=== PATIENT | female | born 1990 | race Caucasian/White ===

== ENCOUNTER 2017-10-13 17:27 | Emergency (ER) | payer OTHER ==
[2017-10-13 17:37] VITALS: BP 100/56; PULSE 90; TEMP 99.5; BMI 26.5
--- NOTE | 2017-10-13 17:37 | PDOC ---
Rapid Medical Evaluation Time Seen by Provider: 10/13/17 17:34 Medical Evaluation: Allergies Allergy/AdvReac Type Severity Reaction Status Date / Time No Known Allergies Allergy Verified 06/25/13 03:08 I have performed a brief in-person evaluation of this patient. The patient presents with a chief complaint of: headache, sore throat, low back pain today. Patient is 13 weeks Pertinent physical exam findings: none I have ordered the following: UA/culture The patient will proceed to the ED for further evaluation. Discharge Disposition - Diagnosis Body aches - Referrals - Patient Instructions - Post Discharge Activity
[2017-10-13 18:40] LABS: URINE APPEARANCE CLOUDY; URINE BILIRUBIN NEGATIVE (<2.0 mg/dL); URINE COLOR LTYELLOW; URINE GLUCOSE (UA) NEGATIVE (NEGATIVE); URINE KETONE NEGATIVE (NEGATIVE); URINE NITRITE NEGATIVE (NEGATIVE); URINE PROTEIN NEGATIVE (NEGATIVE); URINE UROBILINOGEN NEGATIVE mg/dL (0.2-1.0)
[2017-10-13 18:52] LABS: URINE LEUK ESTERASE 3+ (NEGATIVE)
[2017-10-13 18:55] LABS: EPI CELLS FEW /HPF (FEW); URINE BACTERIA RARE /hpf (NONE SEEN); URINE HYALINE CAST 1 /lpf; URINE MUCUS RARE
--- NOTE | 2017-10-13 19:13 | PDOC ---
History of Present Illness - General Chief Complaint: Cold Symptoms Stated Complaint: PAIN/FEVER Time Seen by Provider: 10/13/17 17:34 - History of Present Illness Initial Comments: 27-year-old 13 week female presents for evaluation of urinary frequency with associated fever at home up to 100 degrees. She has associated headache and lower back pain. Mild sore throat symptoms. She has no comorbidities 10/13/17 19:09 Past History - Past Medical History Allergies/Adverse Reactions: Allergies Allergy/AdvReac Type Severity Reaction Status Date / Time No Known Allergies Allergy Verified 10/13/17 17:34 Home Medications: Ambulatory Orders Nitrofurantoin Monohyd/M-Cryst [Macrobid -] 100 mg PO BID #14 capsule 10/13/17 Asthma: Yes Cancer: No Cardiac Disorders: No COPD: No DVT: No Diabetes: No HTN: No Seizures: No Thyroid Disease: No - Immunization History Immunization Up to Date: Yes - Suicide/Smoking/Psychosocial Hx Smoking History: Never smoked Have you smoked in the past 12 months: No Information on smoking cessation initiated: No Hx Alcohol Use: No Drug/Substance Use Hx: No Substance Use Type: None Hx Substance Use Treatment: No Review of Systems - Review of Systems Constitutional: Yes: Fever HEENTM: Yes: Throat Pain : Yes: Frequency. No: Burning, Dysuria, Discharge Musculoskeletal: Yes: Back Pain All Other Systems: Reviewed and Negative *Physical Exam - Vital Signs Last Vital Signs Temp Pulse Resp BP Pulse Ox 99.5 F 90 18 100/56 100 10/13/17 17:35 10/13/17 17:35 10/13/17 17:35 10/13/17 17:35 10/13/17 17:35 - Physical Exam Comments: GENERAL: The patient is awake, alert, and fully oriented, in no acute distress. HEAD: Normal with no signs of trauma. NECK: Normal range of motion, supple without lymphadenopathy, JVD, or masses. LUNGS: Breath sounds equal, clear to auscultation bilaterally. No wheezes, and no crackles. HEART: Regular rate and rhythm, normal S1 and S2 without murmur, rub or gallop. ABDOMEN: Soft, nontender, normoactive bowel sounds. No guarding, no rebound. No masses. EXTREMITIES: Normal range of motion, no edema. No clubbing or cyanosis. No cords, erythema, or tenderness. NEUROLOGICAL: Cranial nerves II through XII grossly intact. Normal speech, normal gait. PSYCH: Normal mood, normal affect. SKIN: Warm, Dry, normal turgor, no rashes or lesions noted. 10/13/17 19:11 ED Treatment Course - ADDITIONAL ORDERS Additional order review: Laboratory Results 10/13/17 18:00 Urine Color Ltyellow Urine Appearance Cloudy Urine pH 8.0 D Ur Specific [place] 1.009 Urine Protein Negative Urine Glucose (UA) Negative Urine Ketones Negative Urine Blood Negative Urine Nitrite Negative Urine Bilirubin Negative Urine Urobilinogen Negative Ur Leukocyte Esterase 3+ H D Urine WBC (Auto) 5 Urine RBC (Auto) 1 Ur Epithelial Cells Few Urine Bacteria Rare Hyaline Casts 1 Urine Mucus Rare Medical Decision Making - Medical Decision Making I've expressed to her the importance of keeping her fever down with Tylenol treat her UTI with Macrobid and have her follow-up with her MEDICAL 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 It's extremely important few to keep her fever down and take Tylenol if you feel like to getting the fever. This could be harmful to her if you develop a fever that's untreated. Take all antibiotics as prescribed - Post Discharge Activity
== END 2017-10-13 19:15 | disposition home or self-care (01) ==
LOC: JERFT 17:27
DX: O26.891 Other specified pregnancy related conditions, first trimester (principal); O23.31 Infections of other parts of urinary tract in pregnancy, first trimester; Z3A.13 13 weeks gestation of pregnancy
CPT/HCPCS: 81003; 81015; 87086; 99281-25

== ENCOUNTER 2018-04-17 21:33 | Inpatient (IN) | payer OTHER ==
[2018-04-17] MEDS ORDERED: DEXTROSE 5%-LACTATED RINGERS 1,000 ML IV SCH ×2 (22:45→23:00)
[2018-04-17] MEDS ORDERED: OXYTOCIN 20 UNITS in 0.9% NS 20 UNIT/1,000 ML INFUS.BAG IV ONE (22:52)
[2018-04-17 22:55] LABS: BASO % 0.9 % (0-2.0); EOS % 1.9 % (0-4.5); HEMATOCRIT 36.7 % (32.4-45.2); HEMOGLOBIN 12.1 GM/dL (10.7-15.3); MCHC 33.1 g/dl (32.0-36.0); MEAN CELL VOLUME 87.4 fl (80-96); MEAN PLT VOLUME 9.1 fl (7.5-11.1); MONO % 9.5 % (3.8-10.2); NEUT % 60.7 % (42.8-82.8); PLATELET COUNT 260 K/MM3 (134-434); RDW 13.1 % (11.6-15.6); WHITE BLOOD COUNT 9.3 K/mm3 (4.0-10.0)
[2018-04-17] MEDS: OXYTOCIN 20 UNITS in 0.9% NS 20 UNIT/1,000 ML INFUS.BAG IV SCH (22:58)
[2018-04-17] MEDS ORDERED: BENZOCAINE 20% 57 GM BOTTLE TP PRN (22:59)
[2018-04-17] MEDS ORDERED: WITCH HAZEL 50% (TUCKS) 40 PAD/JAR PAD TP PRN (22:59)
[2018-04-17] MEDS ORDERED: BENZOCAINE 28 GM HEMORRHOIDAL OINTMENT TP PRN (22:59)
[2018-04-17] MEDS ORDERED: METHYLERGONOVINE MALEATE 0.2 MG/1 ML AMP IM PRN (22:59)
--- NOTE | 2018-04-17 23:03 | HP ---
Past Medical History - Admission Chief Complaint: Uterine contractions History of Present Illness: 27yo @ 39.6wks by MAGGY ramos 04/18/18 here with uterine contractions. No VB. No LOF. +FM Preg uncomplicated History Source: Patient Limitations to Obtaining History: No Limitations - Past Medical History Pulmonary: Yes: Asthma ...: 4 ...Para: 2 ...Term: 2 ...: 0 ...Spon : 1 ... Weeks Gestation by Dates: 39.6 ...EDC by Dates: 04/04/18 ...EDC by Sono: 04/18/18 Psych: Yes: Anxiety - Past Surgical History Past Surgical History: Yes: None Hx Myomectomy: No Hx Transabdominal Cerclage: No - Smoking History Smoking history: Never smoked Have you smoked in the past 12 months: No - Alcohol/Substance Use Hx Alcohol Use: No History of Substance Use: reports: None - Social History Usual Living Arrangement: Yes: With Spouse History of Recent Travel: No Home Medications - Allergies Allergies/Adverse Reactions: Allergies Allergy/AdvReac Type Severity Reaction Status Date / Time No Known Allergies Allergy Verified 10/13/17 17:34 - Home Medications Home Medications: Ambulatory Orders Vit 108/Iron/Folic AC [ One Tablet] 1 tab PO DAILY 04/17/18 Physical Exam - Maternity - Abdominal Exam/OB Number of Fetuses: Single Presentation: Vertex Contractions: Yes Regularity: Regular Intensity: Moderate Monitor Mode: External Category: II Accelerations: Uniform Decelerations: Variable - Vaginal Exam/OB Dilatation (cm): 6-7 Effacement (%): 100 Amniotic Membrane Status: Intact Presentation: Vertex/Position Station: -1 - Physical Exam Edema: No - Labs Lab Results: CBC, BMP 04/17/18 22:30 Assessment/Plan 27yo @ 39.6wks here with uterine contractions Admit to L&D NPO, IVFs Cat II tracing 2/2 intermittent variable decels, likely secondary to active/ imminent labor. Repositioned, oxygen GBS neg Anticipate Patricia Wall MD
[2018-04-17 23:08] LABS: INR 0.93 (0.83-1.09)
--- NOTE | 2018-04-17 23:08 | PN ---
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 39week gestation. No anesthesia. Spontaneous delivery of anterior shoulder. Cord clamped and cut. Infant placed on maternal abdomen. Weight pending. Apgars 9/9. Spontaneous delivery of intact placenta with 3VC. Fundus firm. Perineum inspected, no lacerations noted. EBL 200ml. Mother and baby doing well. Patricia Wall MD
[2018-04-17 23:11] LABS: ACTIVATED PTT 27.5 SECONDS (25.2-36.5)
[2018-04-17 23:23] LABS: ANION GAP 10 MMOL/L (8-16); BLOOD UREA NITROGEN 7 mg/dL (7-18); CHLORIDE 103 mmol/L (98-107); CO2 23 mmol/L (21-32); CREATININE 0.6 mg/dL (0.55-1.3); GLUCOSE,RANDOM 75 mg/dL (74-106); POTASSIUM 4.3 mmol/L (3.5-5.1); SODIUM 137 mmol/L (136-145)
[2018-04-18 00:14] VITALS: BMI 30.5
[2018-04-18] MEDS: ACETAMINOPHEN 325 MG TABLET (FP) PO PRN ×2 (00:15→08:32)
[2018-04-18] MEDS: IBUPROFEN 600 MG TABLET (FP) PO PRN ×2 (00:15→08:32)
[2018-04-18] MEDS ORDERED: IBUPROFEN 600 MG TABLET (FP) PO ONE (00:16)
[2018-04-18] MEDS ORDERED: ACETAMINOPHEN 325 MG TABLET (FP) ONE (00:16)
[2018-04-18] MEDS: OXYTOCIN 20 UNITS in 0.9% NS 20 UNIT/1,000 ML INFUS.BAG IV SCH (03:54)
[2018-04-18 07:26] LABS: BASO % 0.7 % (0-2.0); EOS % 1.2 % (0-4.5); HEMATOCRIT 33.4 % (32.4-45.2); HEMOGLOBIN 10.9 GM/dL (10.7-15.3); LYMPH % 18.3 % (8-40); MCH 28.9 pg (25.7-33.7); MCHC 32.6 g/dl (32.0-36.0); MEAN CELL VOLUME 88.8 fl (80-96); MEAN PLT VOLUME 8.9 fl (7.5-11.1); MONO % 11.4 % (3.8-10.2); NEUT % 68.4 % (42.8-82.8); PLATELET COUNT 225 K/MM3 (134-434); RBC 3.76 M/mm3 (3.60-5.2); RDW 13.4 % (11.6-15.6); WHITE BLOOD COUNT 13.7 K/mm3 (4.0-10.0)
--- NOTE | 2018-04-18 07:31 | PN ---
Post Progress Note Type of Delivery: Vital Signs: Vital Signs Temperature 98.3 F 04/18/18 06:00 Pulse Rate 56 L 04/18/18 06:00 Respiratory Rate 20 04/18/18 06:00 Blood Pressure 101/52 L 04/18/18 06:00 O2 Sat by Pulse Oximetry (%) 98 04/18/18 00:15 Uterus: Yes: Fundus Firm Abdomen/GI: Yes: Abdomen soft Lochia: Yes: Rubra Lochia, amount: Small Extremities: Yes: Calves non-tender Perineum: Yes: Intact Activity: Ambulating - Labs Labs: CBC WBC 9.3 K/mm3 (4.0-10.0) 04/17/18 22:30 RBC 4.20 M/mm3 (3.60-5.2) 04/17/18 22:30 Hgb 12.1 GM/dL (10.7-15.3) 04/17/18 22:30 Hct 36.7 % (32.4-45.2) D 04/17/18 22:30 MCV 87.4 fl (80-96) 04/17/18 22:30 MCH 29.0 pg (25.7-33.7) D 04/17/18 22:30 MCHC 33.1 g/dl (32.0-36.0) 04/17/18 22:30 RDW 13.1 % (11.6-15.6) 04/17/18 22:30 Plt Count 260 K/MM3 (134-434) D 04/17/18 22:30 MPV 9.1 fl (7.5-11.1) 04/17/18 22:30 Absolute Neuts (auto) 5.6 K/mm3 (1.5-8.0) 04/17/18 22:30 Neutrophils % 60.7 % (42.8-82.8) 04/17/18 22:30 Lymphocytes % 27.0 % (8-40) D 04/17/18 22:30 Monocytes % 9.5 % (3.8-10.2) 04/17/18 22:30 Eosinophils % 1.9 % (0-4.5) 04/17/18 22:30 Basophils % 0.9 % (0-2.0) 04/17/18 22:30 Nucleated RBC % 0 % (0-0) 04/17/18 22:30 Assessment/Plan 27yo s/p , PPD#1 Rh+/boy Routine PP care OOB, ambulate Labs pending Anticipate d/c to home by PPD#2 Patricia Wall MD
[2018-04-18] MEDS: FERROUS SO4 325 MG TABLET (FP) PO SCH (08:32)
[2018-04-18] MEDS: PRENATAL VITAMINS W/ FOLIC ACID TABLET (FP) PO SCH (09:36)
[2018-04-18] MEDS ORDERED: SENNOSIDES/DOCUSATE COMBO (SENNA PLUS) TABLET (UD) PO PRN (22:00)
[2018-04-19] MEDS: FERROUS SO4 325 MG TABLET (FP) PO SCH (07:08)
[2018-04-19] MEDS: IBUPROFEN 600 MG TABLET (FP) PO PRN (07:08)
[2018-04-19] MEDS: ACETAMINOPHEN 325 MG TABLET (FP) PO PRN (07:09)
--- NOTE | 2018-04-19 09:55 | DS ---
Physical Exam-GALLEY BOY Vital Signs: Vital Signs Temperature 98.4 F 04/18/18 21:54 Pulse Rate 62 04/18/18 21:54 Respiratory Rate 18 04/18/18 21:54 Blood Pressure 108/57 L 04/18/18 21:54 O2 Sat by Pulse Oximetry (%) 98 04/18/18 00:15 Constitutional: Yes: Well Nourished Eyes: Yes: Conjunctiva Clear HENT: Yes: Atraumatic Neck: Yes: Supple Cardiovascular: Yes: Regular Rate and Rhythm Respiratory: Yes: Regular Gastrointestinal: Yes: Normal Bowel Sounds External Genitalia: Yes: Normal Vaginal Exam: Yes: Normal Cervix: Yes: Normal Uterus: Yes: Firm ....Post : Yes: Uterus firm Extremities: Yes: WNL Neurological: Yes: Alert, Oriented ...Motor Strength: WNL Psychiatric: Yes: Alert, Oriented Labs: CBC, BMP 04/18/18 06:30 04/17/18 22:30 Delivery - Delivery Vaginal Delivery: Spontaneous Type of Anesthesia: None Episiotomy/Laceration: None EBL (cc): 200 Delivery, Single - Stages of Labor Date 1st Stage Initiatied: 04/17/18 Time 1st Stage Initiated: 13:00 Date 2nd Stage Initiated: 04/17/18 Time 2nd Stage Initiated: 22:40 Date of Delivery: 04/17/18 Time of Delivery: 22:55 Time Placenta Delivered: 22:58 Placenta: Yes: Spontaneous - 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 Baby Present: No Infant Gender: Male Weight: 6 lb Position: Right, OA Total Hours ROM (Hrs/Mins): 0Hrs/18Mins - 1 Minute Total Score: 9 5 Minutes Total Score: 9 - Feeding Plan Initial Plan: Exclusive throughout hospitalization Discharge Summary Reason For Visit: LABOR ADMIT Current Active Problems Status post normal vaginal delivery (Acute) Procedures: Principal: Normal spontaneous vaginal delivery Hospital Course: Routine care Condition: Good - Instructions Diet, Activity, Other Instructions: Regular diet No douching, no sexual intercourse x 6 weeks F/U in clinic in 6 weeks Referrals: Patricia Wall MD [Staff Physician] - Disposition: HOME - Home Medications Comprehensive Discharge Medication List: Ambulatory Orders Vit 108/Iron/Folic AC [ One Tablet] 1 tab PO DAILY 04/17/18
[2018-04-19] MEDS: PRENATAL VITAMINS W/ FOLIC ACID TABLET (FP) PO SCH (10:00)
[2018-04-19 11:35] VITALS: BP 102/58; PULSE 55; TEMP 97.6
== END 2018-04-19 13:50 | disposition home or self-care (01) | DRG 560 ==
LOC: JDEL 21:33 → JLDR 21:35 → J3W 04-18 01:23
PROVIDERS: ADMIT Obstetrics & Gynecology; ATTEND Obstetrics & Gynecology
PROC: 10E0XZZ Delivery of Products of Conception, External Approach (ICD-10-PCS; principal; 2018-04-17)
DX: O80 Encounter for full-term uncomplicated delivery (principal); Z3A.39 39 weeks gestation of pregnancy; Z37.0 Single live birth
CPT/HCPCS: 36415; 59409; 80048; 85025; 85610; 85730; 86593; 86850; 86900; 86901

== ENCOUNTER 2018-07-15 11:23 | Emergency (ER) | payer OTHER ==
[2018-07-15 11:40] VITALS: BP 102/64; PULSE 82; TEMP 98.5; BMI 28.7
[2018-07-15] MEDS ORDERED: ALBUTEROL SO4 2.5/IPRATROPIUM 0.5 INH SOL 3 ML VIAL.NEB. NEB ONE ×2 (12:02→12:05)
--- NOTE | 2018-07-15 12:12 | PDOC ---
History of Present Illness - General Chief Complaint: Asthma Stated Complaint: DIFFICULTY BREATHING Time Seen by Provider: 07/15/18 11:39 History Source: Patient Exam Limitations: No Limitations - History of Present Illness Initial Comments: 07/15/18 12:14 Patient here with complaints of pleuritic chest pain, chest tightness and uncertainty as to whether asthma exacerbation versus anxiety. Denies fevers, denies any ear or throat pain, however states has a moist cough and does suffer from seasonal/environmental ALLERGIES with some posterior sinus drainage. Has not used her asthma medications for the past few days for relief of any of the symptoms. Patient states suffers from anxiety and has been under some worsened stress recently. Does not take medication for relief, states usually does therapeutic modalities to help reduce her stress and does not have any other interventions. Denies homicidal or suicidal ideation 07/15/18 12:42 Timing/Duration: reports: just prior to arrival Severity: reports: mild Associated Symptoms: reports: chest pain/soreness, cough, fever/chills, headache , nasal congestion Past History - Travel Traveled outside of the country in the last 30 days: No Close contact w/someone who was outside of country & ill: No - Past Medical History Allergies/Adverse Reactions: Allergies Allergy/AdvReac Type Severity Reaction Status Date / Time No Known Allergies Allergy Verified 07/15/18 11:38 Home Medications: Ambulatory Orders Albuterol Sulfate Inhaler - [Ventolin HFA Inhaler -] 1 - 2 inh PO Q4H #1 inhaler 07/15/18 Albuterol Sulfate Inhaler - [Ventolin Hfa Inhaler -] 1 - 2 inh PO QID 07/15/18 Asthma: Yes (No meds) Cancer: No Cardiac Disorders: No COPD: No DVT: No Diabetes: No HTN: No Seizures: No Thyroid Disease: No - Immunization History Immunization Up to Date: Yes - Suicide/Smoking/Psychosocial Hx Smoking History: Never smoked Have you smoked in the past 12 months: No Hx Alcohol Use: No Drug/Substance Use Hx: No Substance Use Type: None Hx Substance Use Treatment: No Review of Systems - Review of Systems Able to Perform ROS?: Yes Is the patient limited Spanish proficient: Yes Constitutional: Yes: Symptoms Reported, See HPI, Malaise. No: Fever HEENTM: Yes: See HPI, Nose Congestion. No: Symptoms Reported Respiratory: Yes: Symptoms reported, See HPI, Cough. No: Wheezing Musculoskeletal: Yes: Symptoms Reported Integumentary: No: Symptoms Reported Neurological: Yes: Symptoms reported, See HPI, Headache All Other Systems: Reviewed and Negative *Physical Exam - Vital Signs Last Vital Signs Temp Pulse Resp BP Pulse Ox 98.5 F 82 20 102/64 99 07/15/18 11:38 07/15/18 11:38 07/15/18 11:38 07/15/18 11:38 07/15/18 11:38 - Physical Exam General Appearance: Yes: Nourished, Appropriately Dressed, Mild Distress HEENT: positive: PATRICIA, Normal ENT Inspection, Nasal Congestion, Rhinorrhea, Sinus Tenderness. negative: TMs Normal (congested but landmarks visualized ), Pharynx Normal (posterior sinus drainage noted) Neck: positive: Supple. negative: Tender Respiratory/Chest: positive: Chest Tender (mild anterior chest tenderness and worse with deep inspirtation ), Lungs Clear, Decreased Breath Sounds (some tightness wiht deep inspirtation ) Cardiovascular: positive: Regular Rate Gastrointestinal/Abdominal: positive: Soft. negative: Tender Extremity: positive: Normal Capillary Refill Integumentary: positive: Normal Color, Dry, Warm, Pale Neurologic: positive: detonator assembler II-XII NML intact, Fully Oriented, Alert, Normal Mood/ Affect, Normal Response Moderate Sedation - Procedure Monitoring Vital Signs: Procedure Monitoring Vital Signs Temperature 98.5 F 07/15/18 11:38 Pulse Rate 82 07/15/18 11:38 Respiratory Rate 20 07/15/18 11:38 Blood Pressure 102/64 07/15/18 11:38 O2 Sat by Pulse Oximetry (%) 99 07/15/18 11:38 Progress Note - Progress Note Progress Note: Patient much improved after DuoNeb feels much better and pleuritic chest pain is resolved. We will encourage asthma treatment and follow-up with insurance to attempt to find counseling for her anxiety issues *DC/Admit/Observation/Transfer Diagnosis at time of Disposition: Asthma attack Qualifiers: Asthma severity: mild Asthma persistence: intermittent Qualified Code(s): J45.21 - Mild intermittent asthma with (acute) exacerbation - Discharge Dispostion Disposition: HOME Condition at time of disposition: Stable Decision to Admit order: No - Referrals - Patient Instructions Printed Discharge Instructions: DI for Asthma -- Adult Additional Instructions: Rest, drink lots of fluids: Teas, water, soups, Pedialyte Saltwater gargles Steamy showers/seem to face break up mucus Avoid contact with others until fevers and cough resolved Lots of handwashing and good hygiene Continue [id number] medications for symptomatic relief Tylenol or Motrin for fever and pain Continue albuterol nebulizers every 4-6 hours for the next 2 days then as needed for continued cough Followup with private physician in one to 2 days Return to emergency department / pediatric hospital for worsened symptoms, fevers, dehydration - Post Discharge Activity Forms/Work/School Notes: Back to Work
== END 2018-07-15 12:41 | disposition home or self-care (01) ==
LOC: JERFT 11:23
PROC: 3E0F7GC Introduction of Other Therapeutic Substance into Respiratory Tract, Via Natural or Artificial Opening (ICD-10-PCS; principal; 2018-07-15)
DX: J45.21 Mild intermittent asthma with (acute) exacerbation (principal)
CPT/HCPCS: 94640; 99281-25

== ENCOUNTER 2019-01-15 14:42 | Emergency (ER) | payer OTHER ==
[2019-01-15 14:45] VITALS: BMI 30.2
[2019-01-15] MEDS ORDERED: SODIUM CHLORIDE 0.9% 500 ML INFUS.BAG IV ONE (17:18)
[2019-01-15] MEDS ORDERED: KETOROLAC TROMETHAMINE 15 MG/ML VIAL IVPUSH ONE (17:18)
--- NOTE | 2019-01-15 17:18 | PDOC ---
History of Present Illness - General Chief Complaint: Migraine Headache Stated Complaint: DIZZY Time Seen by Provider: 01/15/19 17:11 - History of Present Illness Initial Comments: 01/15/19 17:15 CHIEF COMPLAINT: headache HISTORY OF PRESENT ILLNESS: 28 yo F presents to ED with "migraine" x 1 week. Patient reports symptoms began one week ago as a frontal headache and now the pain is radiating to the back of her head. Pain is described as a constant, throbbing pain and is 8/10. Patient reports nausea and photophobia. LMP began two days ago. No recent travel or sick contacts. PAST MEDICAL HISTORY: Denies past medical history FAMILY HISTORY: Denies SOCIAL HISTORY: Denies tobacco, alcohol, illicit drug use. SURGICAL HISTORY: Denies ALLERGIES: No known drug allergies REVIEW OF SYSTEMS General/Constitutional: Denies fever or chills. Denies weakness, weight change. HEENT: +Photophobia, denies change in vision. Denies ear pain or discharge. Denies sore throat. Cardiovascular: Denies chest pain or shortness of breath. Respiratory: Denies cough, wheezing, or hemoptysis. Gastrointestinal: Denies nausea, vomiting, diarrhea or constipation. Denies rectal bleeding. Genitourinary: Denies dysuria, frequency, or change in urination. Musculoskeletal: Denies joint or muscle swelling or pain. Denies neck or back pain. Skin and breasts: Denies rash or easy bruising. Neurologic: Headache and dizziness. Denies loss of consciousness, or loss of sensation. Psychiatric: Denies depression or anxiety. PHYSICAL EXAM General Appearance: Well-appearing, appropriately dressed. No apparent distress , no intoxication. HEENT: EOMI, PERRLA, normal ENT inspection, normal voice, TMs normal, pharynx normal. No conjunctival pallor. No photophobia, scleral icterus. Neck: Supple. Trachea midline. No tenderness, rigidity, carotid bruit, stridor , lymphadenopathy, or thyromegaly. Respiratory/Chest: Lungs CTAB. No shortness of breath, chest tenderness, respiratory distress, accessory muscle use. No crackles, rales, rhonchi, stridor , wheezing, dullness Cardiovascular: RRR. S1, S2. No JVD, murmur, bradycardia, tachycardia. Vascular Pulses: Dorsalis-Pedis (R): 2+, Dorsalis-Pedis (L): 2+ Gastrointestinal/Abdominal: Normal bowel sounds. Abdomen soft, non-distended. No tenderness or rebound tenderness. No organomegaly, pulsatile mass, guarding , hernia, hepatomegaly, splenomegaly. Lymphatic: No adenopathy, tenderness. Musculoskeletal/Extremities: Normal inspection. FROM of all extremities, normal capillary refill. Pelvis Stable. No CVA tenderness. No tenderness to extremities, pedal edema, swelling, erythema or deformity. Integumentary: Appropriate color, dry, warm. No cyanosis, erythema, jaundice or rash Neurologic: elderly caregiver II-XII intact. Fully oriented, alert. Appropriate mood/affect. Motor strength 5/5. No appreciable EOM palsy, facial droop or sensory deficit. A&Ox3, follow commands, respond appropriately CN2-12: conjugate gaze, pupil round, equal and reactive to light. Visual field full to confrontation. EOMI without nystagmus, pursuit is smooth without saccade. Facial sensation and muscle activation intact bilaterally. Hearing intact bilaterally. Palate elevate symmetrically. Shoulder shrug and neck turn full strength. Tongue protrude midline. Motor: UE and LE strength 5/5 throughout bilaterally. Muscle tone and bulk normal. Sensory: pin prick & temp : BUE & BLE intact and equal bilaterally Vibration & propioception: intact bilaterally at 1st MCP and MTP joints. no sensory level noted on trunk Cerebellar: Rapid-alternating movement with regular rhythm without bradykinesia. Dcbapz-lz-acft and yrga-uf-eevg intact bilaterally without dysmetria or overshoot. Gait narrow based. No shuffling. Full hip flexion and knee flexion. Negative Romberg No involuntary movement noted. No pronator drift. No clonus. Past History - Past Medical History Allergies/Adverse Reactions: Allergies Allergy/AdvReac Type Severity Reaction Status Date / Time No Known Allergies Allergy Verified 01/15/19 14:45 Home Medications: Ambulatory Orders Albuterol Sulfate Inhaler - [Ventolin Hfa Inhaler -] 1 - 2 inh PO QID 07/15/18 Asthma: Yes (No meds) Cancer: No Cardiac Disorders: No COPD: No DVT: No Diabetes: No HTN: No Seizures: No Thyroid Disease: No - Immunization History Immunization Up to Date: Yes - Suicide/Smoking/Psychosocial Hx Smoking History: Never smoked Have you smoked in the past 12 months: No Hx Alcohol Use: No Drug/Substance Use Hx: No Substance Use Type: None Hx Substance Use Treatment: No *Physical Exam - Vital Signs Last Vital Signs Temp Pulse Resp BP Pulse Ox 98.4 F 71 18 119/62 99 01/15/19 14:43 01/15/19 14:43 01/15/19 14:43 01/15/19 14:43 01/15/19 14:43 Medical Decision Making - Medical Decision Making 01/15/19 17:18 28 yo F presents to ED with "migraine" x 1 week. -upreg -IVF, Toradol/reglan/benadrly 01/15/19 18:51 Patient reassessed after administration of meds, patient states she is feeling much better and is ready to go home. Advised patient to take medication as prescribed and follow up with PCP. Advised patient of signs and symptoms for return to ED. Patient verbalized understanding and agrees to plan. *DC/Admit/Observation/Transfer Diagnosis at time of Disposition: Headache Qualifiers: Headache type: unspecified Headache chronicity pattern: acute headache Intractability: not intractable Qualified Code(s): R51 - Headache - Discharge Dispostion Disposition: HOME Condition at time of disposition: Stable Decision to Admit order: No - Referrals Referrals: Lebron Davidson MD [Staff Physician] - - Patient Instructions Printed Discharge Instructions: DI for Hormonal and Tension Headaches Additional Instructions: Please take medications as prescribed. Follow up your primary care doctor for continued monitoring within the next week, and with neurology if you have recurrent headaches. If you develop slurred speech, change in vision, sudden weakness, difficulty walking, or any new or worsening symptoms, please return to the ER. - Post Discharge Activity
[2019-01-15] MEDS ORDERED: METOCLOPRAMIDE HCL INJECTION 10 MG/2 ML VIAL IVPUSH ONE (17:19)
[2019-01-15] MEDS ORDERED: METOCLOPRAMIDE HCL INJECTION 10 MG/2 ML VIAL ONE (17:42)
[2019-01-15] MEDS ORDERED: KETOROLAC TROMETHAMINE 15 MG/ML VIAL ONE ×2 (17:42→17:43)
[2019-01-15 19:10] VITALS: BP 120/77; PULSE 79; TEMP 98.2
== END 2019-01-15 19:10 | disposition home or self-care (01) ==
LOC: JER 14:42
PROC: 3E0333Z Introduction of Anti-inflammatory into Peripheral Vein, Percutaneous Approach (ICD-10-PCS; principal; 2019-01-15)
PROC: 3E033GC Introduction of Other Therapeutic Substance into Peripheral Vein, Percutaneous Approach (ICD-10-PCS; 2019-01-15)
PROC: 3E033GC Introduction of Other Therapeutic Substance into Peripheral Vein, Percutaneous Approach (ICD-10-PCS; 2019-01-15)
PROC: 3E0337Z Introduction of Electrolytic and Water Balance Substance into Peripheral Vein, Percutaneous Approach (ICD-10-PCS; 2019-01-15)
DX: R51 Headache (principal)
CPT/HCPCS: 84703; 96374; 96375; 99282-25

== ENCOUNTER 2019-01-17 01:13 | Emergency (ER) | payer OTHER ==
--- NOTE | 2019-01-17 02:04 | PDOC ---
History of Present Illness - General Chief Complaint: Migraine Headache Stated Complaint: MIGRANE X 1 WEEK Time Seen by Provider: 01/17/19 02:01 History Source: Patient - History of Present Illness Initial Comments: 01/17/19 02:54 28 year old female c/o headache for the last one week. patient seen in this ER 2 days ago given IV fluids reports that symptoms returned. patient reports dizziness, nausea, diarrhea. denies weakness. No PMHX Past History - Past Medical History Allergies/Adverse Reactions: Allergies Allergy/AdvReac Type Severity Reaction Status Date / Time No Known Allergies Allergy Verified 01/17/19 02:13 Home Medications: Ambulatory Orders NK [No Known Home Medication] 01/17/19 Asthma: Yes (No meds) Cancer: No Cardiac Disorders: No COPD: No DVT: No Diabetes: No HTN: No Seizures: No Thyroid Disease: No - Immunization History Immunization Up to Date: Yes - Suicide/Smoking/Psychosocial Hx Smoking History: Never smoked Have you smoked in the past 12 months: No Hx Alcohol Use: No Drug/Substance Use Hx: No Substance Use Type: None Hx Substance Use Treatment: No Review of Systems - Review of Systems Able to Perform ROS?: Yes Is the patient limited Arabic proficient: No Constitutional: No: Symptoms Reported, See HPI, Chills, Diaphoresis, Fever, Loss of Appetite, Malaise, Night Sweats, Weakness, Weight Stable, Unintentional Wgt. Loss, Unexplained wgt Loss, Other ABD/GI: Yes: Diarrhea, Nausea. No: Abdominal cramping Neurological: Yes: Headache, Dizziness *Physical Exam - Vital Signs 01/17/19 03:00 Last Vital Signs Temp Pulse Resp BP Pulse Ox 98.1 F 75 16 113/62 100 01/17/19 01:15 01/17/19 01:15 01/17/19 01:15 01/17/19 01:15 01/17/19 01:15 - Physical Exam General Appearance: Yes: Appropriately Dressed Respiratory/Chest: positive: Lungs Clear, Normal Breath Sounds Cardiovascular: positive: Regular Rhythm, Regular Rate Gastrointestinal/Abdominal: positive: Normal Bowel Sounds, Soft. negative: Tender Extremity: positive: Normal Capillary Refill Integumentary: positive: Normal Color, Dry, Warm Neurologic: positive: egg and spice mixer II-XII NML intact, Fully Oriented, Normal Mood/Affect , Normal Response, Motor Strength 5/5 ED Treatment Course - LABORATORY CBC & Chemistry Diagram: 01/17/19 03:00 01/17/19 03:00 Progress Note - Progress Note Progress Note: A: headache P: labs CT head IVF herber malcolm Medical Decision Making - Medical Decision Making 01/17/19 05:21 ct head is negative *DC/Admit/Observation/Transfer Diagnosis at time of Disposition: Headache Qualifiers: Headache type: unspecified Headache chronicity pattern: acute headache Intractability: not intractable Qualified Code(s): R51 - Headache - Discharge Dispostion Disposition: HOME Condition at time of disposition: Fair - Referrals Referrals: Tate Lozano MD [Primary Care Provider] - Brandon Lamar DO [Staff Physician] - Call tomorrow - Patient Instructions Printed Discharge Instructions: DI for Migraine Additional Instructions: drink plenty of fluids FOllow up with your doctor as soon as possible return to the ER for any worsening symptoms - Post Discharge Activity Forms/Work/School Notes: Back to Work
[2019-01-17 02:13] VITALS: BP 113/62; PULSE 75; TEMP 98.1; BMI 31.4
--- NOTE | 2019-01-17 02:17 | PDOC ---
*Physical Exam - Vital Signs Last Vital Signs Temp Pulse Resp BP Pulse Ox 98.1 F 75 16 113/62 100 01/17/19 01:15 01/17/19 01:15 01/17/19 01:15 01/17/19 01:15 01/17/19 01:15 ED Treatment Course - LABORATORY CBC & Chemistry Diagram: 01/17/19 03:00 01/17/19 03:00 Medical Decision Making - Medical Decision Making 01/17/19 02:16 Patient seen by the advanced practice provider under my direct supervision. Ancillary testing reviewed as necessary. I agree with plan as outlined by the advanced practice provider. *DC/Admit/Observation/Transfer Diagnosis at time of Disposition: Headache Qualifiers: Headache type: unspecified Headache chronicity pattern: acute headache Intractability: not intractable Qualified Code(s): R51 - Headache - Discharge Dispostion Condition at time of disposition: Fair - Referrals Referrals: Tate Lozano MD [Primary Care Provider] - - Patient Instructions - Post Discharge Activity
[2019-01-17] MEDS ORDERED: SODIUM CHLORIDE 1,000 ML IV STA (02:36)
[2019-01-17] MEDS ORDERED: METOCLOPRAMIDE HCL INJECTION 10 MG/2 ML VIAL IVPB ONE (02:36)
[2019-01-17 02:51] LABS: PH,URINE 5.5 (5.0-8.0); URINE APPEARANCE CLEAR; URINE BILIRUBIN NEGATIVE (NEGATIVE); URINE COLOR YELLOW; URINE GLUCOSE (UA) NEGATIVE (NEGATIVE); URINE KETONE NEGATIVE (NEGATIVE); URINE LEUK ESTERASE NEGATIVE (NEGATIVE); URINE NITRITE NEGATIVE (NEGATIVE); URINE PROTEIN NEGATIVE (NEGATIVE); URINE UROBILINOGEN 0.2 mg/dL (0.2-1.0)
[2019-01-17] MEDS ORDERED: METOCLOPRAMIDE HCL INJECTION 10 MG/2 ML VIAL ONE (02:54)
[2019-01-17 03:23] LABS: BASO % 1.2 % (0-2.0); EOS % 9.6 % (0-4.5); HEMATOCRIT 39.1 % (32.4-45.2); MCH 29.5 pg (25.7-33.7); MCHC 33.2 g/dl (32.0-36.0); MEAN CELL VOLUME 88.9 fl (80-96); MEAN PLT VOLUME 9.6 fl (7.5-11.1); MONO % 11.3 % (3.8-10.2); NEUT % 49.9 % (42.8-82.8); PLATELET COUNT 261 K/MM3 (134-434); RDW 12.8 % (11.6-15.6); WHITE BLOOD COUNT 5.9 K/mm3 (4.0-10.0)
[2019-01-17 03:41] LABS: BLOOD UREA NITROGEN 12.8 mg/dL (7-18); CALCIUM 8.7 mg/dL (8.5-10.1); CREATININE 0.6 mg/dL (0.55-1.3)
[2019-01-17] MEDS ORDERED: ACETAMINOPHEN 325 MG TABLET (FP) ONE (05:31)
[2019-01-17] MEDS ORDERED: ACETAMINOPHEN 325 MG TABLET (FP) PO ONE (05:52)
== END 2019-01-17 05:51 | disposition home or self-care (01) ==
LOC: JER 01:13
PROC: 3E033GC Introduction of Other Therapeutic Substance into Peripheral Vein, Percutaneous Approach (ICD-10-PCS; principal; 2019-01-17)
PROC: 3E033GC Introduction of Other Therapeutic Substance into Peripheral Vein, Percutaneous Approach (ICD-10-PCS; 2019-01-17)
DX: R51 Headache (principal)
CPT/HCPCS: 36415; 70450-TC; 80048; 81003; 84703; 85025; 99283-25; J7030

== ENCOUNTER 2019-01-19 00:16 | Emergency (ER) | payer OTHER ==
[2019-01-19 00:29] VITALS: TEMP 98.1; BMI 29.2
--- NOTE | 2019-01-19 01:48 | PDOC ---
History of Present Illness - General Chief Complaint: Asthma Stated Complaint: DIFFICULTY BREATHING/ASTHMA Time Seen by Provider: 01/19/19 01:47 - History of Present Illness Initial Comments: 01/19/19 01:47 Ms. Avila is a 28 yo female w/ pmh of asthma and anxiety who presents for evaluation of 4 day history of congestion with additional shortness of breath upon waking overnight when daughter woke up with asthma attack. Patient reports she took inhaler 1x. Denies other complaints at this time. The patient denies chest pain, headache and dizziness. Denies fever, chills, nausea, vomit, diarrhea and constipation. Denies dysuria, frequency, urgency and hematuria. Past History - Past Medical History Allergies/Adverse Reactions: Allergies Allergy/AdvReac Type Severity Reaction Status Date / Time No Known Allergies Allergy Verified 01/19/19 00:25 Home Medications: Ambulatory Orders NK [No Known Home Medication] 01/17/19 Asthma: Yes (No meds) Cancer: No Cardiac Disorders: No COPD: No DVT: No Diabetes: No HTN: No Seizures: No Thyroid Disease: No - Immunization History Immunization Up to Date: Yes - Psycho Social/Smoking Cessation Hx Smoking History: Never smoked Have you smoked in the past 12 months: No Hx Alcohol Use: No Drug/Substance Use Hx: No Substance Use Type: None Hx Substance Use Treatment: No Review of Systems - Review of Systems Comments:: 01/19/19 01:48 GENERAL/CONSTITUTIONAL: No fever or chills. No weakness. HEAD, EYES, EARS, NOSE AND THROAT: No change in vision. No ear pain or discharge. No sore throat. CARDIOVASCULAR: No chest pain or shortness of breath RESPIRATORY: +Nonspecific dry cough with sinus congestion. No wheezing, or hemoptysis. GASTROINTESTINAL: No nausea, vomiting, diarrhea or constipation. GENITOURINARY: No dysuria, frequency, or change in urination. MUSCULOSKELETAL: No joint or muscle swelling or pain. No neck or back pain. SKIN: No rash NEUROLOGIC: No headache, vertigo, loss of consciousness, or change in strength/ sensation. ENDOCRINE: No increased thirst. No abnormal weight change HEMATOLOGIC/LYMPHATIC: No anemia, easy bleeding, or history of blood clots. ALLERGIC/IMMUNOLOGIC: No hives or skin allergy. *Physical Exam - Vital Signs Last Vital Signs Temp Pulse Resp BP Pulse Ox 98.1 F 100 H 20 123/81 99 09/26/19 00:22 01/19/19 00:22 01/19/19 00:22 01/19/19 00:22 01/19/19 00:22 - Physical Exam Comments: 01/19/19 01:48 GENERAL: Awake, alert, and fully oriented, in no acute distress HEAD: No signs of trauma, normocephalic, atraumatic EYES: PERRLA, EOMI, sclera anicteric, conjunctiva clear ENT: Auricles normal inspection, hearing grossly normal, nares patent, oropharynx clear without exudates. Moist mucosa NECK: Normal ROM, supple, no lymphadenopathy, JVD, or masses LUNGS: No distress, speaks full sentences, clear to auscultation bilaterally HEART: Regular rate and rhythm, normal S1 and S2, no murmurs, rubs or gallops, peripheral pulses normal and equal bilaterally. ABDOMEN: Soft, nontender, normoactive bowel sounds. No guarding, no rebound. No masses EXTREMITIES: Normal inspection, Normal range of motion, no edema. No clubbing or cyanosis. NEUROLOGICAL: Cranial nerves II through XII grossly intact. Normal speech, normal gait, no focal sensorimotor deficits SKIN: Warm, Dry, normal turgor, no rashes or lesions noted.\ Medical Decision Making - Medical Decision Making 01/19/19 03:04 Patient is a 28 yo female w/ pmh as described who presents for evaluation of symptoms of asthma exacerbation earlier this evening. Patient resting comfortably upon exam. Patient give 1x duoneb with improvement of symptoms. Patient has no other complaints and reports she feels comfortable following up outpatient. No concern for acute process at this time. Discharging to home. Discharge - Discharge Information Problems reviewed: Yes Clinical Impression/Diagnosis: Asthma exacerbation Qualifiers: Asthma severity: unspecified severity Asthma persistence: unspecified Qualified Code(s): J45.901 - Unspecified asthma with (acute) exacerbation Disposition: HOME - Follow up/Referral Referrals: Tate Lozano MD [Primary Care Provider] - - Patient Discharge Instructions Patient Printed Discharge Instructions: Asthma -- Adult Additional Instructions: You were evaluated today in the ER for your symptoms. We treated you with a breathing treatment and your symptoms improved. We do not believe anything emergent is occurring at this time. Please follow-up later this week with primary care provider for further evaluation. Return to ER if any fever, chills , further shortness of breath, or other concerning symptoms. - Post Discharge Activity Work/Back to School Note: Back to Work
--- NOTE | 2019-01-19 01:52 | PDOC ---
Attending Attestation - Resident Resident Name: Singh Sidhu - ED Attending Attestation I have performed the following: I have examined & evaluated the patient, The case was reviewed & discussed with the resident, I agree w/resident's findings & plan - HPI HPI: 01/19/19 05:08 see resident hpi - Physicial Exam PE: 01/19/19 05:08 agree with resident exam - Medical Decision Making 01/19/19 05:08 28 yo with sob exam wnl pt admits symptoms likely due to anxiety will d/c
[2019-01-19] MEDS ORDERED: ALBUTEROL SO4 2.5/IPRATROPIUM 0.5 INH SOL 3 ML VIAL.NEB. NEB ONE ×2 (01:57→02:05)
[2019-01-19 03:27] VITALS: BP 103/53; PULSE 76
== END 2019-01-19 03:36 | disposition home or self-care (01) ==
LOC: JER 00:16
PROC: 3E0F7GC Introduction of Other Therapeutic Substance into Respiratory Tract, Via Natural or Artificial Opening (ICD-10-PCS; principal; 2019-01-19)
DX: J45.901 Unspecified asthma with (acute) exacerbation (principal); F41.9 Anxiety disorder, unspecified
CPT/HCPCS: 99281-25

== ENCOUNTER 2020-11-20 01:48 | Emergency (ER) | payer OTHER ==
[2020-11-20 02:23] VITALS: BP 102/67; PULSE 93; TEMP 98.9; BMI 32.9
[2020-11-20] MEDS ORDERED: DEXAMETHASONE 4 MG TABLET (FP) PO ONE (05:13)
[2020-11-20] MEDS ORDERED: DEXAMETHASONE 4 MG TABLET (FP) ONE (05:38)
== END 2020-11-20 06:33 | disposition home or self-care (01) ==
LOC: JER 01:48
DX: J02.9 Acute pharyngitis, unspecified (principal); Z11.52 Encounter for screening for COVID-19
CPT/HCPCS: 87880; 99283-25; C9803; U0003; U0005

== ENCOUNTER 2021-09-01 04:14 | Day surgery (SDC) | payer OTHER ==
[2021-08-27 17:18] VITALS: BMI 35.1
[2021-09-01] MEDS ORDERED: BUPIVACAINE HCL/PF 0.25% (2.5MG/ML) 10 ML VIAL ONE (09:12)
[2021-09-01] MEDS ORDERED: BUPIVACAINE HCL/PF 0.5% (5MG/ML) 10 ML VIAL ONE (09:12)
[2021-09-01] MEDS ORDERED: ROCURONIUM BROMIDE 50 MG/5 ML SYRINGE ONE (09:30)
[2021-09-01] MEDS ORDERED: PROPOFOL 20 ML ONE ×2 (09:30→10:57)
[2021-09-01] MEDS ORDERED: MIDAZOLAM HCL 2 MG/2 ML SINGLE DOSE VIAL ONE ×3 (09:30→11:04)
[2021-09-01] MEDS ORDERED: ACETAMINOPHEN INJECTION 100 ML IVPB ONE (09:34)
[2021-09-01] MEDS ORDERED: NEOSTIGMINE METHYLSULFATE 0.5 MG/ML - 10 ML MDV ONE (10:25)
[2021-09-01] MEDS ORDERED: BUPIVACAINE HCL/PF 2.5 MG/ML - 30 ML VIAL IJ ONE ×2 (10:32)
[2021-09-01] MEDS ORDERED: oxyCODONE HCL 5 MG TABLET PO PRN (11:47)
[2021-09-01] MEDS ORDERED: LACTATED RINGERS SOLUTION 1,000 ML IV SCH (12:00)
[2021-09-01 13:24] VITALS: BP 103/61; PULSE 68; TEMP 97.1
== END 2021-09-01 14:50 | disposition home or self-care (01) ==
LOC: JASU-SURG 04:14
PROVIDERS: ATTEND Obstetrics & Gynecology
PROC: 0UDB7ZX Extraction of Endometrium, Via Natural or Artificial Opening, Diagnostic (ICD-10-PCS; 2021-09-01)
PROC: 0UJD8ZZ Inspection of Uterus and Cervix, Via Natural or Artificial Opening Endoscopic (ICD-10-PCS; 2021-09-01)
PROC: 0UT74ZZ Resection of Bilateral Fallopian Tubes, Percutaneous Endoscopic Approach (ICD-10-PCS; principal; 2021-09-01 09:45)
DX: Z30.2 Encounter for sterilization (principal)
CPT/HCPCS: 36415; 84703; 88302-TC; 94760

== ENCOUNTER 2024-02-24 22:56 | Emergency (ER) | payer OTHER ==
[2024-02-24 23:07] VITALS: BP 126/80; PULSE 92; RESP 20; TEMP 98.8; BMI 31.8
[2024-02-24] MEDS ORDERED: ALBUTEROL SO4 2.5/IPRATROPIUM 0.5 INH SOL 3 ML VIAL.NEB. NEB ONE (23:44)
[2024-02-24] MEDS ORDERED: predniSONE 20 MG TABLET (UD) ONE (23:44)
[2024-02-24] MEDS: predniSONE 20 MG TABLET (UD) PO ONE (23:52)
[2024-02-24] MEDS: ALBUTEROL SO4 2.5/IPRATROPIUM 0.5 INH SOL 3 ML VIAL.NEB. NEB ONE (23:53)
== END 2024-02-25 01:00 | disposition home or self-care (01) ==
LOC: JER 22:56
PROC: 3E0F7GC Introduction of Other Therapeutic Substance into Respiratory Tract, Via Natural or Artificial Opening (ICD-10-PCS; principal; 2024-02-24)
DX: J45.909 Unspecified asthma, uncomplicated (principal); R06.02 Shortness of breath; R05.9 Cough, unspecified; Z20.822 Contact with and (suspected) exposure to COVID-19
CPT/HCPCS: 0241U-QW; 71046-TC-FY; 99284-25